=== PATIENT | female | born 1955 | race Caucasian/White ===

== ENCOUNTER → 2023-09-20 | Outpatient (CLI) | payer BC, MEDICARE ==
[2023-09-20 09:36] VITALS: BP 132/70; PULSE 72; RESP 15; TEMP 98.2
--- NOTE | 2023-09-20 14:10 | P.PAINPG ---
PQRS Measure Charge Sheet Comment: HISTORY OF PRESENT ILLNESS: A 68 yr old female as a referral from Dr Gilmore presents today w severe and chronic LBP > 4 yrs secondary to DDD, spondylosis and facet arthropathy without myelopathy for evaluation. Pt states pain level is provoked at 9 /10 in intensity, constant, localized in the moderate spine, predominantly axial, sharp in character w occasional shooting pain towards the L knee. Pain is provoked by standing/ walking for periods > 10 min. Pain is alleviated by PT x 6 wks which ended in Aug 2023, physician guided home exercises/ stretches 5 times weekly since Aug 2023. medications (Neurontin, Ibu, Tyl), heat, ice, repositioning and rest . Oswestry axial pain score at 28. PMH: OA, Hyperlipidemia, Hypothyroidism PSH: L Total Knee Arthroplasty SH: Former tobacco user, Moderate ETOH use, No illicit drug use FH: [place] All: See list Meds: See list REVIEW OF ORGAN SYSTEMS: CONSTITUTIONAL: No fevers or chills. No recent weight loss. NEUROLOGICAL: + numbness and tingling along the distal extremities. No seizure disorders or headaches. MUSCULOSKELETAL: + pain PSYCHIATRIC: Denies current depression or suicidal thoughts. Physical Examinations : Constitutional : Cooperative , not in acute distress . Neurologic : Cranial nerve II to XII intact. No focal neurological deficits. Psychiatric : alert & oriented x 3. Matching mood & appropriate affect. Judgment & insight intact. Musculoskeletal : Cervical Spine Motor strength in the deltoid and biceps: Normal right side. Normal Left side Motor strength biceps and the wrist extensors: Normal right side . Normal left side Motor strength in the triceps muscle: Normal right side. Normal left side Deep tendon reflexes: Normal at the biceps. Normal at Brachioradialis. Normal at triceps Vertebral body tenderness to deep palpation over Cervical facet loading test: positive bilaterally Spurling test: positive bilaterally Neck distraction test: positive bilaterally Sheeba sign: positive bilaterally Lumbar spine Motor strength lower extremities ,thigh and legs 5/5 Right side , 5/5 Left side Deep tendon reflexes : Normal Knee Jerk. Normal Ankle Jerk Vertebral body tenderness over Vallejo Test positive Lumbar facet Loading Test: positive Right / positive Left Range of motion of the lumbar spine F lexion 30 degrees, extension 10 degrees Straight Leg Raise test: Left/ Right positive at degrees Wenceslao test: positive right / positive left. Severe tenderness over the Sacroiliac joint on the Right / Left sides Magda test: positive bilaterally Seated flexion test: positive bilaterally. Sacral spine : Severe tenderness over the Sacroiliac joint: right side / left side Range of motion: Flexion of the lumbar spine <60 degrees Range of motion: Extension of the lumbar spine <20 degrees Gaenslen's Test positive Wenceslao test: positive right side / left side Thigh Thrust Test Sacral Thrust Test Imaging: MRI non contrast of the lumbar spine from 12/02/2019 reviewed Assessment/ Plan : Lumbar DDD Recommendation of lumbar x ray M51.36 May need additional testing if indicated. All questions answered. I have spent greater than 30 minutes on patient care today. Dr Riley was available by phone for the evaluation of this patient. The time was used to review the medical records including relevant urine studies and Prescription history (MAPs), review of the available imaging, evaluation and examination of the patient, coordination of care with the medical staff and if applicable referring physicians, as well as creation of the medical record Controlled Substance Measures - Controlled Substance Measures Is patient prescribed a controlled substance at discharge?: No
== END ==
LOC: PNWHC3 09:05
PROVIDERS: ATTEND Specialist
DX: M51.36 Other intervertebral disc degeneration, lumbar region (principal); M48.061 Spinal stenosis, lumbar region without neurogenic claudication; Z87.891 Personal history of nicotine dependence
CPT/HCPCS: 99211

== ENCOUNTER → 2023-10-04 | Outpatient (CLI) | payer BC, MEDICARE ==
[2023-10-04 10:38] VITALS: BP 137/70; PULSE 76; RESP 15; TEMP 97.2
--- NOTE | 2023-10-04 15:46 | P.PAINPG ---
PQRS Measure Charge Sheet Comment: HISTORY OF PRESENT ILLNESS: A 68 yr old female presents today w severe and chronic LBP > 4 yrs secondary to DDD, spondylosis and facet arthropathy without myelopathy for evaluation. Pt states pain level is provoked at 9 /10 in intensity, constant, localized in the moderate spine, predominantly axial, sharp in character w occasional shooting pain towards the L knee. Pain is provoked by standing/ walking for periods > 10 min. Pain is alleviated by PT x 6 wks which ended in Aug 2023, physician guided home exercises/ stretches 5 times weekly since Aug 2023. medications, heat, ice, repositioning and rest . Oswestry axial pain score at 28. Interventional procedures include Medications include Neurontin, Ibu, Tyl REVIEW OF ORGAN SYSTEMS: CONSTITUTIONAL: No fevers or chills. No recent weight loss. NEUROLOGICAL: + numbness and tingling along the distal extremities. No seizure disorders or headaches. MUSCULOSKELETAL: + pain PSYCHIATRIC: Denies current depression or suicidal thoughts. Physical Examinations : Constitutional : Cooperative , not in acute distress . Neurologic : Cranial nerve II to XII intact. No focal neurological deficits. Psychiatric : alert & oriented x 3. Matching mood & appropriate affect. Judgment & insight intact. Musculoskeletal : Cervical Spine Motor strength in the deltoid and biceps: Normal right side. Normal Left side Motor strength biceps and the wrist extensors: Normal right side . Normal left side Motor strength in the triceps muscle: Normal right side. Normal left side Deep tendon reflexes: Normal at the biceps. Normal at Brachioradialis. Normal at triceps Vertebral body tenderness to deep palpation over Cervical facet loading test: positive bilaterally Spurling test: positive bilaterally Neck distraction test: positive bilaterally Sheeba sign: positive bilaterally Lumbar spine Motor strength lower extremities ,thigh and legs 5/5 Right side , 5/5 Left side Deep tendon reflexes : Normal Knee Jerk. Normal Ankle Jerk Vertebral body tenderness over Vallejo Test positive Lumbar facet Loading Test: positive Right / positive Left Range of motion of the lumbar spine Flexion 30 degrees, extension 10 degrees Straight Leg Raise test: Left/ Right positive at degrees Wenceslao test: positive right / positive left. Severe tenderness over the Sacroiliac joint on the Right / Left sides Gaenslen test: positive bilaterally Seated flexion test: positive bilaterally. Sacral spine : Severe tenderness over the Sacroiliac joint: right side / left side Range of motion: Flexion of the lumbar spine <60 degrees Range of motion: Extension of the lumbar spine <20 degrees Gaenslen's Test positive Wenceslao test: positive right side / left side Thigh Thrust Test Sacral Thrust Test Imaging: X ray of the lumbar spine from 09/21/23 reviewed Assessment/ Plan : Lumbar DDD Recommendation of MRI non contrast of the lumbar spine M51.36. Opiate/ Narcotic agreement signed 10/04/23. Gary 5/325mg #60, Robaxin 500mg #60 w 1 RF. Use, side effects, adverse reactions, safe storage discussed. Pt acknowledged understanding. All questions answered. I have spent greater than 30 minutes on patient care today. Dr Riley was available by phone for the evaluation of this patient. The time was used to review the medical records including relevant urine studies and Prescription history (MAPs), review of the available imaging, evaluation and examination of the patient, coordination of care with the medical staff and if applicable referring physicians, as well as creation of the medical record PQRS Narrative: Hx Alcohol Use (MH) No Home Medications: Ambulatory Orders HYDROcodone/APAP 5-325MG [Gary 5-325] 1 tab PO BID PRN 30 Days #60 tab 10/04/23 HYDROcodone/APAP 5-325MG [Gary 5-325] 1 tab PO BID PRN 30 Days #60 tab 10/04/23 methocarbamoL [Robaxin] 500 mg PO BID PRN 30 Days #60 tab 10/04/23 Controlled Substance Measures - Controlled Substance Measures Is patient prescribed a controlled substance at discharge?: Yes When asked, does pt state using other controlled substances?: Yes If prescribed controlled substance>3 days was MAPS reviewed?: Yes If Rx opioid, was Start Talking consent form obtained?: Yes Was information provided regarding opioid addiction?: Yes
== END ==
LOC: PNWHC3 07:53
PROVIDERS: ATTEND Specialist
DX: M51.36 Other intervertebral disc degeneration, lumbar region (principal); M47.816 Spondylosis without myelopathy or radiculopathy, lumbar region; G89.29 Other chronic pain
CPT/HCPCS: 99211

== ENCOUNTER → 2023-11-22 | Outpatient (CLI) | payer BC, MEDICARE ==
[2023-11-22 08:13] VITALS: BP 140/85; PULSE 70; RESP 16
--- NOTE | 2023-11-22 14:49 | P.PAINPG ---
PQRS Measure Charge Sheet Comment: HISTORY OF PRESENT ILLNESS: A 68 yr old female presents today w severe and chronic LBP > 4 yrs secondary to DDD, spondylosis and facet arthropathy without myelopathy for MRI results Pt states pain level is provoked at 9 /10 in intensity, constant, localized in the moderate spine, predominantly axial, sharp in character w occasional shooting pain towards the LLE Pain is provoked by standing/ walking for periods > 10 min. Pain is alleviated by PT x 6 wks which ended in Aug 2023, physician guided home exercises/ stretches 5 times weekly since Aug 2023, medications, heat, ice, repositioning and rest . Oswestry axial pain score at 28. Interventional procedures include Medications include Mobic, Neurontin, Ibu, Tyl, Phillips rarely REVIEW OF ORGAN SYSTEMS: CONSTITUTIONAL: No fevers or chills. No recent weight loss. NEUROLOGICAL: + numbness and tingling along the distal extremities. No seizure disorders or headaches. MUSCULOSKELETAL: + pain PSYCHIATRIC: Denies current depression or suicidal thoughts. Physical Examinations : Constitutional : Cooperative , not in acute distress . Neurologic : Cranial nerve II to XII intact. No focal neurological deficits. Psychiatric : alert & oriented x 3. Matching mood & appropriate affect. Judgment & insight intact. Musculoskeletal : Cervical Spine Motor strength in the deltoid and biceps: Normal right side. Normal Left side Motor strength biceps and the wrist extensors: Normal right side . Normal left side Motor strength in the triceps muscle: Normal right side. Normal left side Deep tendon reflexes: Normal at the biceps. Normal at Brachioradialis. Normal at triceps Vertebral body tenderness to deep palpation over Cervical facet loading test: positive bilaterally Spurling test: positive bilaterally Neck distraction test: positive bilaterally Sheeba sign: positive bilaterally Lumbar spine Motor strength lower extremities ,thigh and legs 5/5 Right side , 5/5 Left side Deep tendon reflexes : Normal Knee Jerk. Normal Ankle Jerk Vertebral body tenderness over L5 Vallejo Test positive L L5-S1 Lumbar facet Loading Test: positive Right / positive Left Range of motion of the lumbar spine Flexion 30 degrees, extension 10 degrees Straight Leg Raise test: Left/ Right positive at degrees Wenceslao test: positive right / positive left. Severe tenderness over the Sacroiliac joint on the Right / Left sides Gaenslen test: positive bilaterally Seated flexion test: positive bilaterally. Sacral spine : Severe tenderness over the Sacroiliac joint: right side / left side Range of motion: Flexion of the lumbar spine <60 degrees Range of motion: Extension of the lumbar spine <20 degrees Gaenslen's Test positive Wenceslao test: positive right side / left side Thigh Thrust Test Sacral Thrust Test Imaging: MRI non contrast lumbar spine from 10/24/23 reviewed X ray of the lumbar spine from 09/21/23 reviewed Assessment/ Plan : Lumbar DDD Recommendation of JULIANE L5-S1 #1. May need a series of injections for optimal pain relief. Risks, benefits of procedure discussed and pt verbalized understanding. Protocol for discontinuation/ continuation of medications saud procedure discussed. Opiate/ Narcotic agreement signed 10/04/23. Mobic 7.5mg #30 w 1 RF. Use, side effects, adverse reactions, safe storage discussed. Pt acknowledged understanding. All questions answered. I have spent greater than 30 minutes on patient care today. Dr Riley was available by phone for the evaluation of this patient. The time was used to review the medical records including relevant urine studies and Prescription history (MAPs), review of the available imaging, evaluation and examination of the patient, coordination of care with the medical staff and if applicable referring physicians, as well as creation of the medical record PQRS Narrative: Hx Alcohol Use (MH) No Home Medications: Ambulatory Orders HYDROcodone/APAP 5-325MG [Phillips 5-325] 1 tab PO BID PRN 30 Days #60 tab 10/04/23 HYDROcodone/APAP 5-325MG [Phillips 5-325] 1 tab PO BID PRN 30 Days #60 tab 10/04/23 methocarbamoL [Robaxin] 500 mg PO BID PRN 30 Days #60 tab 10/04/23 Meloxicam [Mobic] 7.5 mg PO DAILY 30 Days #30 tab 11/22/23 Controlled Substance Measures - Controlled Substance Measures Is patient prescribed a controlled substance at discharge?: No
== END ==
LOC: PNWHC3 07:23
PROVIDERS: ATTEND Specialist
DX: M51.36 Other intervertebral disc degeneration, lumbar region (principal); Z91.09 Other allergy status, other than to drugs and biological substances
CPT/HCPCS: 99212

== ENCOUNTER 2023-12-15 06:24 | Day surgery (SDC) | payer BC, MEDICARE ==
[2023-12-13 15:09] VITALS: BMI 32.1
[2023-12-15 07:03] VITALS: TEMP 97.5
[2023-12-15 07:08] LABS: Glucose,Whole Blood 114 mg/dL (70-110)
[2023-12-15] MEDS ORDERED: LACTATED RINGERS 1,000 ML IV SCH (07:30)
[2023-12-15] MEDS ORDERED: methylPREDNISolone ACETATE 40 MG/ML 1 ML VIAL ONE (07:34)
[2023-12-15] MEDS ORDERED: IOPAMIDOL M200 10 ML VIAL ONE (07:34)
--- NOTE | 2023-12-15 07:44 | P.PCN ---
Date of Procedure: 12/15/23 Description of Procedure: Procedure: 1. [id number] steroid injection under fluoroscopic guidance # 05/31 , 2. Lumbar epidurogram PREOPERATIVE DIAGNOSIS: Lumbar degenerative disc disease, and Lumbar radiculopathy. POSTOPERATIVE DIAGNOSIS: Lumbar degenerative disc disease, and Lumbar radiculopathy. SURGEON: Carmenza Leal ANESTHESIA: Local with 1% lidocaine, and IV sedation: None EBL: None. Specimen removed: None Fluoroscopic image: saved to electronic medical records PROCEDURE INDICATION: The patient had history of Lumbar degenerative disc disease and Lumbar radiculopathy. Failed to conservative therapy. Presented for epidural steroid injection. PROCEDURE DESCRIPTION: The patient was seen and identified in the preoperative area. Risks, benefits, complications, and alternatives were discussed with the patient. The patient agreed to proceed with the procedure and signed the consent. Vital signs were stable. Patient was taken to the procedure area, and time out was completed. The patient was placed in the prone position on procedure table and a pillow was placed under the abdomen to reduce lumbar lordosis. The lumbosacral area was prepped and draped in the usual sterile fashion. Critical pause was taken. Vital signs were closely monitored during the procedure. Using anterior-posterior fluoroscopy, the L5-S1 interlaminar space was identified, and skin and deeper tissues were localized with 1% lidocaine. Using anterior-posterior fluoroscopy, lateral fluoroscopy, and rqcl-kq-mrqufuvlsi technique, a 20 gauge 3.5 Tuohy epidural needle entered the epidural space. After negative aspiration of CSF and blood with no paresthesias, 1 ml of [id number] contrast dye was injected and an excellent epidurogram was seen. Again after negative aspiration of CSF and blood with no paresthesias, 8 mL of block solution was injected into the epidural space. Block solution contained 40 mg of Depo-Medrol, and 7 mL of preservative-free normal saline. Needle was withdrawn intact, skin was cleansed, and bandages were applied. COMPLICATIONS: None. preprocedure VAS, and postprocedure VAS: 7 out of 10 DISPOSITION / PLANS: The patient was placed in a supine position and transferred to the recovery area in a stable condition for observation. Patient was discha rged from the recovery room after meeting discharge criteria. Home discharge instructions given to the patient by the staff. The patient was reexamined prior to discharge. The patient will schedule a follow up in the clinic in 4 weeks.
[2023-12-15 07:51] VITALS: RESP 14
--- NOTE | 2023-12-15 08:02 | FL ---
EXAMINATION TYPE: FL guided pain mgmt statistic DATE OF EXAM: 12/15/2023 FLUOROSCOPY Lumbar Epid Inj 7sec fluoro time .08900 DAP 2 images submitted.
[2023-12-15 08:04] VITALS: BP 129/71; PULSE 71
== END 2023-12-15 08:19 | disposition home or self-care (01) ==
LOC: ORPAIN 06:24
DX: M51.16 Intervertebral disc disorders with radiculopathy, lumbar region (principal); E03.9 Hypothyroidism, unspecified; E78.00 Pure hypercholesterolemia, unspecified; Z79.890 Hormone replacement therapy; Z79.899 Other long term (current) drug therapy; Z91.09 Other allergy status, other than to drugs and biological substances
CPT/HCPCS: 62323; Q9966; J1010

== ENCOUNTER → 2024-01-03 | Outpatient (CLI) | payer BC, MEDICARE | LOC: PNWHC3 09:17 | DX: M54.16 Radiculopathy, lumbar region | CPT/HCPCS: 99211 ==

== ENCOUNTER → 2024-02-13 | Day surgery (SDC) | payer BC, MEDICARE ==
[2024-02-08 11:13] VITALS: BMI 31.9
[~2024-02-13] MED LIST: IOPAMIDOL M200 10 ML VIAL ONE; LACTATED RINGERS 1,000 ML IV SCH; ROPIVACAINE 5MG/ML 20ML VIAL ONE; TRIAMCINOLONE ACETONIDE 40 MG/ML 1 ML VIAL ONE
[2024-02-13 08:11] VITALS: TEMP 97.8
--- NOTE | 2024-02-13 08:46 | P.PCN ---
Date of Procedure: 02/13/24 Surgeon: Kan Betancourt Pathology: none sent Condition: stable Disposition: PACU Description of Procedure: PREOPERATIVE DIAGNOSIS: 1-Lumbar radiculopathy 2- Lumber Degenerative Disc Diseases. POSTOPERATIVE DIAGNOSIS: 1-Lumbar radiculopathy. 2-Lumbar Degenerative Disc Diseases PROCEDURE 1. Lumbar epidural steroid injection under fluoroscopic guidance at the L4-5 level in the left paramedian approach. 2. Lumbar epidurogram. ANESTHESIA: Local only with 1% lidocaine EBL: Minimal PROCEDURE INDICATION: The patient with low back pain and radiculitis symptoms unresponsive to conservative treatment. Fluoroscopy was used to optimize visualization of the needle placement and to maximize safety. The patient has more pain in the back of her thighs and also in the left calf area. Her pain is more intense on the left side. Her most recent MRI showed severe lumbar stenosis at the L3 4 level and moderate stenosis at the L4 5 level. She had an epidural injection at the L5-S1 level last time and she has 70% of pain relief afterwards. Today I will change the level to L4 5 due to the most recent MRI results and also because it correlates with her current symptoms. PROCEDURE DESCRIPTION / TECHNIQUE: The patient was seen and identified in the preoperative area. Risks, benefits, complications including but not limited to infections ,bleeding ,allergic reaction to the medications ,nerve damage and not complete pain relief , and alternatives were discussed with the patient. The patient agreed to proceed with the procedure and signed the consent. IV was started, and vital signs were stable. Patient was taken to the OR and time out was completed. The patient was placed in the prone position on procedure table and a pillow was placed under the abdomen to reduce lumbar lordosis. The lumbosacral area was prepped and draped in the usual sterile fashion with ChloraPrep.Patient was closely monitored during the procedure. Conscious sedation was used during the procedure to decrease patients anxiety. Vital signs were monitered during the entire procedure. Using anterior-posterior fluoroscopy, the L4-5 interlaminar space was identified and the skin over this site was marked and then infiltrated with 1% lidocaine subcutaneously. Subsequently, a 20-gauge Tuohy epidural needle was inserted and advanced toward the epidural space using the Loss of resistance to air technique and guided by AP and lateral fluoroscopy. The correct needle position in the epidural space was verified with the injection of 1 mL of the water soluble contrast dye Omnipaque 180 contrast and observing an excellent epidurogram with the epidural spread of the dye, after negative aspiration for blood and CSF and in the absence of paresthesias. Again after negative aspiration, a 7 ml mixture containing 40 mg of Kenalog and 5 ml of preservative free Normal Saline, and 2 ml of preservative free Ropivacaine 0.5% solution was injected and a washout of epidurogram was seen. Needle was withdrawn intact, skin was cleansed, and bandages were applied. patient tolerated procedure well and was transferred to PACU in stable condition.A copy of the needle placement picture was saved to the fluoroscopy machine. COMPLICATIONS: None DISPOSITION / PLANS: The patient was placed in a supine position and transferred to the recovery area in a stable condition for observation. There was no evidence of lower extremity motor or sensory deficit after the procedure. Patient was discharged from the recovery room after meeting discharge criteria. Home discharge instructions were given to the patient by the staff. The patient was reexamined prior to discharge. The patient will schedule a follow up in the clinic in 2-4 weeks.
[2024-02-13 08:55] VITALS: RESP 14
[2024-02-13 09:08] VITALS: BP 129/76; PULSE 61
--- NOTE | 2024-02-29 10:36 | FL ---
EXAMINATION TYPE: FL guided pain mgmt statistic DATE OF EXAM: 02/13/2024 8:53 AM COMPARISON: Pre Operative Images if available both CT/MRI or plain film CLINICAL INDICATION: Female, 69 years old with history of M54.16; TECHNIQUE: FL guided pain mgmt statistic, multiple fluoroscopic images provided for procedure. Total fluoroscopy time: 17.3 seconds Total submitted images to PACS: 2 DAP: 0.20450 mGym2 Gycm2 uGym2 cGycm2 or equivalent. FINDINGS: Fluoroscopic images during injection for pain management demonstrate multilevel degeneration changes throughout the spine. No evidence for fracture. No acute process identified. IMPRESSION: 1. No evidence for intraoperative complication. 2. Please see the operative/procedural note for further details. [facility], , 02/29/2024 10:33 AM
== END ==
LOC: ORPAIN 06:53
PROVIDERS: ATTEND Anesthesiology
DX: M51.16 Intervertebral disc disorders with radiculopathy, lumbar region (principal); M48.061 Spinal stenosis, lumbar region without neurogenic claudication; F41.9 Anxiety disorder, unspecified
CPT/HCPCS: 62323

== ENCOUNTER → 2024-03-04 | Outpatient (CLI) | payer BC, MEDICARE ==
[2024-03-04 09:22] VITALS: BP 146/88; PULSE 97; RESP 16; TEMP 97.1
--- NOTE | 2024-03-04 15:04 | P.PAINPG ---
PQRS Measure Charge Sheet Comment: HISTORY OF PRESENT ILLNESS: A 69 yr old female presents today w severe and chronic LBP > 4 yrs secondary to radiculopathy, spondylosis and facet arthropathy without myelopathy, BL Sacroiliitis for evaluation s/p L paramedian JULIANE L4-L5 #1. Pt states she experienced >50 % pain relief x 3 wks s/p procedure. Pt states pain level is provoked at 8 /10 in intensity, constant, localized in the moderate spine, predominantly axial, sharp in character w occasional shooting pain towards the LLE Pain is provoked by standing/ walking for periods > 10 min. Pain is alleviated by PT x 6 wks which ended in Aug 2023, physician guided home exercises/ stretches 5 times weekly since Aug 2023, medications, use of a TENS u nit at home, heat, ice, repositioning and rest . Interventional procedures include JULIANE L5-S1 x1, L4-L5 x1 Medications include Mobic, Neurontin, Ibu, Tyl, [place] rarely REVIEW OF ORGAN SYSTEMS: CONSTITUTIONAL: No fevers or chills. No recent weight loss. NEUROLOGICAL: + numbness and tingling along the distal extremities. No seizure disorders or headaches. MUSCULOSKELETAL: + pain PSYCHIATRIC: Denies current depression or suicidal thoughts. Physical Examinations : Constitutional : Cooperative , not in acute distress . Neurologic : Cranial nerve II to XII intact. No focal neurological deficits. Psychiatric : alert & oriented x 3. Matching mood & appropriate affect. Judgment & insight intact. Musculoskeletal : Cervical Spine Motor strength in the deltoid and biceps: Normal right side. Normal Left side Motor strength biceps and the wrist extensors: Normal right side . Normal left side Motor strength in the triceps muscle: Normal right side. Normal left side Deep tendon reflexes: Normal at the biceps. Normal at Brachioradialis. Normal at triceps Vertebral body tenderness to deep palpation over Cervical facet loading test: positive bilaterally Spurling test: positive bilaterally Neck distraction test: positive bilaterally Sheeba sign: positive bilaterally Lumbar spine Motor strength lower extremities ,thigh and legs 5/5 Right side , 5/5 Left side Deep tendon reflexes : Normal Knee Jerk. Normal Ankle Jerk Vertebral body tenderness over L4 [place] Test positive L L4-5 Lumbar facet Loading Test: positive Right / positive Left Range of motion of the lumbar spine Flexion 30 degrees, extension 10 degrees Straight Leg Raise test: Left/ Right positive at degrees Wenceslao test: positive right / positive left. Severe tenderness over the Sacroiliac joint on the Right / Left sides Gaenslen test: positive bilaterally Seated flexion test: positive bilaterally. Sacral spine : Severe tenderness over the Sacroiliac joint: right side / left side Range of motion: Flexion of the lumbar spine <60 degrees Range of motion: Extension of the lumbar spine <20 degrees Gaenslen's Test positive R> L Wenceslao test: positive right side > left side Thigh Thrust Test BL positive Sacral Thrust Test Imaging: MRI non contrast lumbar spine from 10/24/23 reviewed X ray of the lumbar spine from 09/21/23 reviewed Assessment/ Plan : Lumbar radiculopathy, BL Sacroiliitis Recommendation of BL SI injection #1. Risks, benefits of procedure discussed and pt verbalized understanding. Protocol for discontinuation/ continuation of medications saud procedure discussed. Opiate/ Narcotic agreement signed 10/04/23. Add Diclofenac gel w 1 RF. Use, side effects, adverse reactions, safe storage discussed. Pt acknowledged understanding. All questions answered. I have spent greater than 30 minutes on patient care today. Dr Riley was available by phone for the evaluation of this patient. The time was used to review the medical records including relevant urine studies and Prescription history (MAPs), review of the available imaging, evaluation and examination of the patient, coordination of care with the medical staff and if applicable referring physicians, as well as creation of the medical record - Pain Location Bilateral Lower Back Non-Pharmacological Interventions: Chiropractic Treatment, Heat, Ice, Inactivity, Physical Therapy, TENS Unit Pharmacological Interventions: Epidural, PRN Medication, Scheduled Medication, Topical Medication PQRS Narrative: Narcotic Agreement Date Signed 10/04/23 Hx Alcohol Use (MH) No Home Medications: Ambulatory Orders HYDROcodone/APAP 5-325MG [[place] 5-325] 1 tab PO BID PRN 30 Days #60 tab 10/04/23 Acetaminophen [Tylenol Extra Strength] 500 mg PO DAILY PRN 12/14/23 Calcium D3(Unknown Dose) 40 mcg PO QAM 12/14/23 Cholecalciferol (Vitamin D3) [Vitamin D3 (50 Mcg = 2000 Iu)] 50 mcg PO QAM 12/14/23 Collagenpeptide(Uknown Dose) 28 gm PO QAM 12/14/23 Glucosamine/Chondr Juan A Sod [Osteo Bi-Flex Caplet] 1 each PO BID 12/14/23 Ibuprofen (Uknown Dose) 1 dose PO Q6H PRN 12/14/23 Levothyroxine Sodium [Synthroid] 125 mcg PO QAM 12/14/23 Multivitamin [Multivitamins Adult Gummies] 1 each PO QAM 12/14/23 Oxybutynin Chloride [oxyBUTYnin chloride ER] 10 mg PO QAM 12/14/23 Simvastatin [Zocor] 10 mg PO HS 12/14/23 Naproxen Sodium [Aleve] 220 mg PO DAILY PRN 02/08/24 Meloxicam [Mobic] 7.5 mg PO QAM 30 Days #30 tab 02/12/24 Controlled Substance Measures - Controlled Substance Measures Is patient prescribed a controlled substance at discharge?: No
== END ==
LOC: PNWHC3 08:58
PROVIDERS: ATTEND Specialist
DX: M54.16 Radiculopathy, lumbar region (principal); M46.1 Sacroiliitis, not elsewhere classified; Z88.8 Allergy status to other drugs, medicaments and biological substances
CPT/HCPCS: 99211

== ENCOUNTER 2024-03-28 08:53 | Day surgery (SDC) | payer BC, MEDICARE ==
[2024-03-28] MEDS ORDERED: LACTATED RINGERS 1,000 ML IV SCH (09:50)
[2024-03-28 09:55] VITALS: RESP 16; TEMP 97
[2024-03-28] MEDS ORDERED: methylPREDNISolone ACETATE 40 MG/ML 1 ML VIAL ONE (10:56)
[2024-03-28] MEDS ORDERED: ROPIVACAINE 5MG/ML 20ML VIAL ONE (10:56)
[2024-03-28] MEDS ORDERED: IOPAMIDOL M200 10 ML VIAL ONE (10:56)
--- NOTE | 2024-03-28 11:03 | P.PCN ---
Date of Procedure: 03/28/24 Procedure(s) Performed: Procedure= bilateral sacroiliac joints steroid injection under fluoroscopy guidance (fluoroscopy image stored on file in the radiology Department ) Preoperative diagnosis= 1-bilateral sacroiliitis 2-lumbar radiculopathy Postoperative diagnosis=Same as preop Diagnosis . Complication = none Condition= stable Anesthesia= local anesthesia with ropivacaine 0.5% 4 ml only Indication for the procedure= patient complaining of low back pain , examination was positive for severe tenderness over the sacroiliac joints bilaterally and patient diagnosed with sacroiliitis, for this reason she was good candidate for sacroiliac joint steroid injection. Description of the procedure= procedure risk and benefits discussed with the patient, including but not limited, risk of infection and bleeding, and ALLERGIC reaction to the medication and not complete pain relief and patient agreed with the preceding patient taken to the operating room, placed in prone position or standard monitors applied to the patient then after induction of anesthesia back prepped with chlorhexidine 3 times , Then under strict sterile technique, first I did the right sacroiliac joint the which was identified under fluoroscopy guidance been local infiltration of the skin and subcu interstitial with lidocaine 1% then 22-gauge Quincke Needle advanced slowly under fluoroscopy and placed in the right sacroiliac joint needle placement confirmed with AP and oblique and lateral view, then after that Isovue 200 one mL injected which confirmed the correct needle placement with the appropriate arthrogram of the sacroiliac joint, and after appropriate needle placement confirmed and after negative aspiration, or heme , then Ropivacaine 0.5% 2 mL, and 20 mg of Depo-Medrol mixed together and injected in the right sacroiliac joint after negative aspiration patient tolerated the procedure well without any complication. Then the left sacroiliac joint steroid injection done under strict sterile technique local infiltration of the skin and subcu interstitial at the location of the left sacroiliac joint then a 22-gauge Quincke Needle advanced slowly under fluoroscopy time placed in the left sacroiliac joint, needle placement confirmed with AP and oblique and lateral view then after appropriate needle placement confirmed, with the AP and oblique and lateral then after negative aspiration Isovue 200 1 mL injected showed arthropathy of the left sacroiliac joint, and after negative aspiration 0.5% Ropivacaine 2 mL and 20 mg of Depo- Medrol injected in the left sacroiliac joint after negative aspiration patient tolerated the procedure well that any complications and she will follow up in clinic 3 weeks
[2024-03-28 11:41] VITALS: BP 138/84; PULSE 68
--- NOTE | 2024-03-28 11:43 | FL ---
EXAMINATION TYPE: FL guided pain mgmt statistic DATE OF EXAM: 03/28/2024 FLUOROSCOPY lucrecia Si Inj 15 sec fluoro time .[id number] Solis 2 images submitted. [facility], , 03/28/2024 11:41 AM
== END 2024-03-28 11:41 | disposition home or self-care (01) ==
LOC: ORPAIN 08:53
PROVIDERS: ATTEND Specialist
DX: M46.1 Sacroiliitis, not elsewhere classified (principal); M54.16 Radiculopathy, lumbar region
CPT/HCPCS: 27096; Q9966; J2795; J1010

== ENCOUNTER → 2024-04-29 | Outpatient (CLI) | payer BC, MEDICARE ==
[2024-04-29 09:42] VITALS: BP 150/89; PULSE 71; RESP 16; TEMP 97.3
--- NOTE | 2024-04-29 16:20 | P.PAINPG ---
PQRS Measure Charge Sheet Comment: HISTORY OF PRESENT ILLNESS: A 69 yr old female presents today w severe and chronic LBP > 4 yrs secondary to radiculopathy, spondylosis and facet arthropathy without myelopathy, BL Sacroiliitis for evaluation s/p BL SI injection #1. Pt states she experienced 0 % pain relief s/p procedure. Pt states pain level is provoked at 8 /10 in intensity, constant, localized in the lumbar spine, predominantly axial, sore in character w occasional shooting pain down the back of the LLE. Pain is provoked by standing from a sitting position, walking for periods > 10 min. Pain is alleviated by PT x 6 wks which ended in Aug 2023, physician guided home exercises/ stretches 5 times weekly since Aug 2023, medications, use of a TENS unit at home, heat, ice, repositioning and rest . Interventional procedures include JULIANE L5-S1 x1, L4-L5 x1, BL SI x1 (Feb 2024) Medications include Mobic, Neurontin, Ibu, Tyl, [place] rarely REVIEW OF ORGAN SYSTEMS: CONSTITUTIONAL: No fevers or chills. No recent weight loss. NEUROLOGICAL: + numbness and tingling along the distal extremities. No seizure disorders or headaches. MUSCULOSKELETAL: + pain PSYCHIATRIC: Denies current depression or suicidal thoughts. Physical Examinations : Constitutional : Cooperative , not in acute distress . Neurologic : Cranial nerve II to XII intact. No focal neurological deficits. Psychiatric : alert & oriented x 3. Matching mood & appropriate affect. Judgment & insight intact. Musculoskeletal : Cervical Spine Motor strength in the deltoid and biceps: Normal right side. Normal Left side Motor strength biceps and the wrist extensors: Normal right side . Normal left side Motor strength in the triceps muscle: Normal right side. Normal left side Deep tendon reflexes: Normal at the biceps. Normal at Brachioradialis. Normal at triceps Vertebral body tenderness to deep palpation over Cervical facet loading test: positive bilaterally Spurling test: positive bilaterally Neck distraction test: positive bilaterally Sheeba sign: positive bilaterally Lumbar spine Motor strength lower extremities ,thigh and legs 5/5 Right side , 5/5 Left side Deep tendon reflexes : Normal Knee Jerk. Normal Ankle Jerk Vertebral body tenderness over L4 [place] Test positive L L4-5 Lumbar facet Loading Test: positive Right / positive Left L4-L5, L5-S1 Range of motion of the lumbar spine Flexion 30 degrees, extension 10 degrees Straight Leg Raise test: Left/ Right positive at degrees Wenceslao test: positive right / positive left. Severe tenderness over the Sacroiliac joint on the Right / Left sides Gaenslen test: positive bilaterally Seated flexion test: positive bilaterally. Sacral spine : Severe tenderness over the Sacroiliac joint: right side / left side Range of motion: Flexion of the lumbar spine <60 degrees Range of motion: Extension of the lumbar spine <20 degrees Gaenslen's Test positive R> L Wenceslao test: positive right side > left side Thigh Thrust Test BL positive Sacral Thrust Test Imaging: MRI non contrast lumbar spine from 10/24/23 reviewed X ray of the lumbar spine from 09/21/23 reviewed Assessment/ Plan : Lumbar radiculopathy, BL Sacroiliitis Recommendation of BL MBB L4-L5/ L5-S1 #1. Risks, benefits of procedure discussed and pt verbalized understanding. Minimal anesthesia including Fentanyl and Versed if clinically indicated. Protocol for discontinuation/ continuation of medications saud procedure discussed. Opiate/ Narcotic agreement signed 10/04/23. [place] 5/325mg #60, Robaxin 500mg #60, Mobic 15mg #30 & Diclofenac gel w 1 RF. Use, side effects, adverse reactions, safe storage discussed. Pt acknowledged understanding. All questions answered. I have spent greater than 30 minutes on patient care today. Dr Riley was available by phone for the evaluation of this patient. The time was used to review the medical records including relevant urine studies and Prescription history (MAPs), review of the available imaging, evaluation and examination of the patient, coordination of care with the medical staff and if applicable referring physicians, as well as creation of the medical record - Pain Location Bilateral Lower Back Non-Pharmacological Interventions: Heat, Ice, Inactivity, Position/Reposition, Sitting Pharmacological Interventions: Epidural, PRN Medication, Scheduled Medication, Topical Medication PQRS Narrative: Narcotic Agreement Date Signed 10/04/23 Hx Alcohol Use (MH) No Home Medications: Ambulatory Orders Acetaminophen [Tylenol Extra Strength] 500 mg PO DAILY PRN 12/14/23 Calcium D3(Unknown Dose) 40 mcg PO QAM 12/14/23 Cholecalciferol (Vitamin D3) [Vitamin D3 (50 Mcg = 2000 Iu)] 50 mcg PO QAM 12/14/23 Collagenpeptide(Uknown Dose) 28 gm PO QAM 12/14/23 Glucosamine/Chondr Juan A Sod [Osteo Bi-Flex Caplet] 1 each PO BID 12/14/23 Ibuprofen (Uknown Dose) 1 dose PO Q6H PRN 12/14/23 Levothyroxine Sodium [Synthroid] 125 mcg PO QAM 12/14/23 Multivitamin [Multivitamins Adult Gummies] 1 each PO QAM 12/14/23 Oxybutynin Chloride [oxyBUTYnin chloride ER] 10 mg PO QAM 12/14/23 Simvastatin [Zocor] 10 mg PO HS 12/14/23 Naproxen Sodium [Aleve] 220 mg PO DAILY PRN 02/08/24 Diclofenac Sodium Gel [Voltaren 1% Gel] 50 gm TOPICAL BID 30 Days #1 each 04/29/24 HYDROcodone/APAP 5-325MG [[place] 5-325] 1 tab PO BID PRN 30 Days #60 tab 04/29/24 HYDROcodone/APAP 5-325MG [[place] 5-325] 1 tab PO BID PRN 30 Days #60 tab 04/29/24 Meloxicam [Mobic] 7.5 mg PO QAM 30 Days #30 tab 04/29/24 methocarbamoL [Robaxin] 500 mg PO BID PRN 30 Days #60 tab 04/29/24 Controlled Substance Measures - Controlled Substance Measures Is patient prescribed a controlled substance at discharge?: Yes When asked, does pt state using other controlled substances?: No If prescribed controlled substance>3 days was MAPS reviewed?: Yes
== END ==
LOC: PNWHC3 09:22
PROVIDERS: ATTEND Specialist
DX: M47.26 Other spondylosis with radiculopathy, lumbar region (principal); M46.1 Sacroiliitis, not elsewhere classified; Z79.891 Long term (current) use of opiate analgesic; Z91.048 Other nonmedicinal substance allergy status
CPT/HCPCS: 99211

== ENCOUNTER → 2024-05-24 | Day surgery (SDC) | payer BC, MEDICARE ==
[2024-05-23 09:59] VITALS: BMI 31.1
[~2024-05-24] MED LIST changes: +FLUMAZENIL 0.1 MG/ML 5 ML VIAL IVP ONE; -IOPAMIDOL M200 10 ML VIAL ONE; -LACTATED RINGERS 1,000 ML IV SCH; +MIDAZOLAM 2 MG/2 ML VIAL ONE; -TRIAMCINOLONE ACETONIDE 40 MG/ML 1 ML VIAL ONE; +fentaNYL (PF) 50 MCG/ML 2 ML AMP ONE
[2024-05-24] MEDS: IV FLUID CONTINUATION 1,000 ML IV ONE (09:27)
[2024-05-24 09:37] VITALS: RESP 16; TEMP 97.7
[2024-05-24] MEDS: LACTATED RINGERS 1,000 ML IV SCH (09:41)
--- NOTE | 2024-05-24 10:40 | P.PCN ---
Date of Procedure: 05/24/24 Procedure(s) Performed: PREOPERATIVE DIAGNOSIS : 1- Lumbar spondylosis with Facet Arthropathy without myelopathy . 2- Lumber degenerative disc disease POSTOPERATIVE DIAGNOSIS: 1- Lumbar spondylosis with Facet Arthropathy without myelopathy . 2- Lumber degenerative disc disease PROCEDURE: Diagnostic bilateral L3 , L4 , and L5 medial branch block under fluoroscopy guidance(fluoroscopy images available in the radiology Department ) ( To target the facet joint between Bilateral L4-5 , and L5- S1 )#1st ANESTHESIA: moderate sedation with intravenous Versed 4 mg and Fentanyl 100 mcg.(Sedation started at 1019 ended at 1036) EBL: Minimal COMPLICATION: None PROCEDURE INDICATION: Chronic low back pain secondary to Facet arthropathy unresponsive to conservative treatment. PROCEDURE DESCRIPTION: the patient was seen and identified in the preop holding area , risks and benefits and possible complications of the procedure and alternative were discussed with the patient, and the patient agreed to proceed with the procedure and signed the consent and vital signs monitored during the procedure and fluoroscopy was used to maximize the benefit and accuracy of the needle placement, and sedation was given to decrease patient anxiety, patient was taken to the procedure room and placed in prone position vital signs monitored in the back prepped with chlorhexidine X3 then under strict sterile technique using a right oblique fluoroscopy ,the junction of the transverse process and the superior articulating process of the right L3 , L4 , and L5 vertebra which corresponding to the fluoroscopy image of the eye of the Dwayne dog on the block side for the medial branches and subsequently , after local infiltration of skin and subcu tissuies with Ropivacaine 0.5 % , one mL at each level ,then 22-gauge Quincke-type needles , 3 needle was used , each one of them placed at the junction of the base of the transverse process and the superior articular process at the appropriate level, and the needle was advanced until the periosteum contacted, needle placement confirmed with AP oblique and lateral view and after appropriate needle placement confirmed, and after negative aspiration for heme and CSF and there was no paresthesia 1-1/2 mL of Ropivacaine 0.5% , then half mL injected at each level after negative aspiration the needle subsequently removed and the same procedure repeated for the left side at left side at L3 , L4 and L5 levels. At the end of the procedure and the needles removed and a bandage applied after the skin was cleaned the cleaning solution patient taken to recovery room in stable condition and monitors in the recovery room for 20-30 minutes and discharged home in stable condition after discharge criteria met and patient will follow up with the pain clinic in 2-4 weeks note= patient received 2 mg of Versed , and 50 mcg of fentanyl at the beginning of the procedure, and later on we found out that the patient's IV was infiltrated,for this reason we changed the IV, and patient did not feel any effect of the medication ,for this reason we did give another 2 mg of Versed and 50 mcg of fentanyl, and at the end of the procedure we reversed the effect of the Versed with Romazicon 0.3 mg IV
[2024-05-24] MEDS: IV FLUID CONTINUATION 750 ML IV ONE (10:52)
[2024-05-24 11:25] VITALS: BP 144/78; PULSE 54
--- NOTE | 2024-05-24 12:32 | FL ---
EXAMINATION TYPE: FL guided pain mgmt statistic DATE OF EXAM: 05/24/2024 FLUOROSCOPY 23sec fluoro time .[id number] Solis Bilateral lumbar facet blocks 4 images are submitted. [facility], , 05/24/2024 12:29 PM
== END ==
LOC: ORPAIN 08:15
PROVIDERS: ATTEND Specialist
DX: M47.816 Spondylosis without myelopathy or radiculopathy, lumbar region (principal); M51.369 Other intervertebral disc degeneration, lumbar region without mention of lumbar back pain or lower extremity pain; G89.29 Other chronic pain; Z79.1 Long term (current) use of non-steroidal anti-inflammatories (NSAID); Z79.899 Other long term (current) drug therapy; Z91.048 Other nonmedicinal substance allergy status
CPT/HCPCS: 64493; 64494 ×2; 99152; J2250; J3010; J2795

== ENCOUNTER → 2024-06-24 | Outpatient (CLI) | payer BC, MEDICARE ==
[2024-06-24 12:05] VITALS: BP 137/84; PULSE 76; RESP 16; TEMP 98.9
--- NOTE | 2024-06-24 15:20 | P.PAINPG ---
PQRS Measure Charge Sheet Comment: HISTORY OF PRESENT ILLNESS: A 69 yr old female presents today w severe and chronic LBP > 4 yrs secondary to radiculopathy, spondylosis and facet arthropathy without myelopathy, BL Sacroiliitis for evaluation s/p BL MBB L4-L5/ L5-S1 #1. Pt states she experienced 85 % pain relief 1 wk s/p procedure. Pt states pain level is provoked at 6 /10 in intensity, constant, localized in the lumbar spine, predominantly axial, sore in character w occasional shooting pain down the back of the LLE. Pain is provoked by standing from a sitting position, walking for periods > 10 min. Pain is alleviated by PT x 6 wks which ended in Aug 2023, physician guided home exercises/ stretches 5 times weekly since Aug 2023, medic ations, use of a TENS unit at home, heat, ice, repositioning and rest . Interventional procedures include JULIANE L5-S1 x1, L4-L5 x1, BL SI x1 (Feb 2024), BL MBB L3-L5 x1 Medications include Mobic, Neurontin, Ibu, Tyl, [place] rarely REVIEW OF ORGAN SYSTEMS: CONSTITUTIONAL: No fevers or chills. No recent weight loss. NEUROLOGICAL: + numbness and tingling along the distal extremities. No seizure disorders or headaches. MUSCULOSKELETAL: + pain PSYCHIATRIC: Denies current depression or suicidal thoughts. Physical Examinations : Constitutional : Cooperative , not in acute distress . Neurologic : Cranial nerve II to XII intact. No focal neurological deficits. Psychiatric : alert & oriented x 3. Matching mood & appropriate affect. Judgment & insight intact. Musculoskeletal : Cervical Spine Motor strength in the deltoid and biceps: Normal right side. Normal Left side Motor strength biceps and the wrist extensors: Normal right side . Normal left side Motor strength in the triceps muscle: Normal right side. Normal left side Deep tendon reflexes: Normal at the biceps. Normal at Brachioradialis. Normal at triceps Vertebral body tenderness to deep palpation over Cervical facet loading test: positive bilaterally Spurling test: positive bilaterally Neck distraction test: positive bilaterally Sheeba sign: positive bilaterally Lumbar spine Motor strength lower extremities ,thigh and legs 5/5 Right side , 5/5 Left side Deep tendon reflexes : Normal Knee Jerk. Normal Ankle Jerk Vertebral body tenderness over L4 [place] Test positive L L4-5 Lumbar facet Loading Test: positive Right / positive Left L4-L5, L5-S1 Range of motion of the lumbar spine Flexion 30 degrees, extension 10 degrees Straight Leg Raise test: Left/ Right positive at degrees Wenceslao test: positive right / positive left. Severe tenderness over the Sacroiliac joint on the Right / Left sides Gaenslen test: positive bilaterally Seated flexion test: positive bilat erally. Sacral spine : Severe tenderness over the Sacroiliac joint: right side / left side Range of motion: Flexion of the lumbar spine <60 degrees Range of motion: Extension of the lumbar spine <20 degrees Gaenslen's Test positive R> L Wenceslao test: positive right side > left side Thigh Thrust Test BL positive Sacral Thrust Test Imaging: MRI non contrast lumbar spine from 10/24/23 reviewed X ray of the lumbar spine from 09/21/23 reviewed Assessment/ Plan : Lumbar radiculopathy, BL Sacroiliitis Recommendation of BL MBB L4-L5/ L5-S1 #2. Risks, benefits of procedure discussed and pt verbalized understanding. Minimal anesthesia including Fentanyl and Versed if clinically indicated. Protocol for discontinuation/ continuation of medications saud procedure discussed. Opiate/ Narcotic agreement signed 10/04/23. Ample supply of [place] 5/325mg #60, Robaxin 500mg #60, Mobic 15mg #30 & Diclofenac gel w 1 RF. Use, side effects, adverse reactions, safe storage discussed. Pt acknowledged understanding. All questions answered. I have spent greater than 30 minutes on patient care today. Dr Riley was available by phone for the evaluation of this patient. The time was used to review the medical records including relevant urine studies and Prescription history (MAPs), review of the available imaging, evaluation and examination of the patient, coordination of care with the medical staff and if applicable referring physicians, as well as creation of the medical record PQRS Narrative: Narcotic Agreement Date Signed 10/04/23 Hx Alcohol Use (MH) No Home Medications: Ambulatory Orders Acetaminophen [Tylenol Extra Strength] 500 - 650 mg PO DAILY PRN 12/14/23 Calcium D3(Unknown Dose) 40 mcg PO QAM 12/14/23 Cholecalciferol (Vitamin D3) [Vitamin D3 (50 Mcg = 2000 Iu)] 50 mcg PO QAM 12/14/23 Ibuprofen [Advil] 200 mg PO DAILY PRN 12/14/23 Multivitamin [Multivitamins Adult Gummies] 1 each PO QAM 12/14/23 Oxybutynin Chloride [oxyBUTYnin chloride ER] 10 mg PO QAM 12/14/23 Simvastatin [Zocor] 10 mg PO HS 12/14/23 Naproxen Sodium [Aleve] 220 mg PO DAILY PRN 02/08/24 Diclofenac Sodium Gel [Voltaren 1% Gel] 50 gm TOPICAL BID 30 Days #1 each 04/29/24 HYDROcodone/APAP 5-325MG [[place] 5-325] 1 tab PO BID PRN 30 Days #60 tab 04/29/24 Meloxicam [Mobic] 7.5 mg PO QAM 30 Days #30 tab 04/29/24 methocarbamoL [Robaxin] 500 mg PO BID PRN 30 Days #60 tab 04/29/24 Glucosamine/Chondr Juan A Sod [Osteo Bi-Flex Caplet] 1 each PO DAILY 05/23/24 Magnesium 400 mg PO DAILY 05/23/24 Controlled Substance Measures - Controlled Substance Measures Is patient prescribed a controlled substance at discharge?: No
== END ==
LOC: PNWHC3 09:24
PROVIDERS: ATTEND Specialist
DX: M54.16 Radiculopathy, lumbar region (principal); M46.1 Sacroiliitis, not elsewhere classified; Z91.048 Other nonmedicinal substance allergy status; Z91.09 Other allergy status, other than to drugs and biological substances
CPT/HCPCS: 99211

== ENCOUNTER → 2024-07-22 | Outpatient (CLI) | payer BC, MEDICARE ==
[2024-07-22 10:05] VITALS: BP 151/86; PULSE 95; RESP 16; TEMP 97.1
--- NOTE | 2024-07-22 15:32 | P.PAINPG ---
Objective - Vital Signs Vital signs: Vital Signs Temp 97.1 F L 07/22/24 10:01 Pulse 95 07/22/24 10:01 Resp 16 07/22/24 10:01 BP 151/86 07/22/24 10:01 Pulse Ox 95 07/22/24 10:01 FiO2 Intake & Output 07/21/24 07/22/24 07/22/24 18:59 06:59 18:59 Weight 90.265 kg PQRS Measure Charge Sheet Mode of Arrival: Ambulatory Comment: HISTORY OF PRESENT ILLNESS: A 69 yr old female presents today w severe and chronic LBP > 4 yrs secondary to radiculopathy, spondylosis and facet arthropathy without myelopathy, BL Sacroiliitis for evaluation s/p BL MBB L4-L5/ L5-S1 #2. Pt states she experienced 80 % pain relief 2 hr s/p procedure. Pt states pain level is provoked at 7 /10 in intensity, constant, localized in the lumbar spine, predominantly axial, sore in character w occasional shooting pain down the back of the LLE. Pain is provoked by standing from a sitting position, walking for periods > 10 min. Pain is alleviated by PT x 6 wks which ended in Aug 2023, physician guided home exercises/ stretches 5 times weekly since Aug 2023, medications, use of a cane, TENS unit at home, heat, ice, repositioning and rest . Interventional procedures include JULIANE L5-S1 x1, L4-L5 x1, BL SI x1 (Feb 2024), BL MBB L3-L5 x2 Medications include Mobic, Neurontin, Ibu, Tyl, [place] rarely REVIEW OF ORGAN SYSTEMS: CONSTITUTIONAL: No fevers or chills. No recent weight loss. NEUROLOGICAL: + numbness and tingling along the distal extremities. No seizure disorders or headaches. MUSCULOSKELETAL: + pain PSYCHIATRIC: Denies current depression or suicidal thoughts. Physical Examinations : Constitutional : Cooperative , not in acute distress . Neurologic : Cranial nerve II to XII intact. No focal neurological deficits. Psychiatric : alert & oriented x 3. Matching mood & appropriate affect. Judgment & insight intact. Musculoskeletal : Cervical Spine Motor strength in the deltoid and biceps: Normal right side. Normal Left side Motor strength biceps and the wrist extensors: Normal right side . Normal left side Motor strength in the triceps muscle: Normal right side. Normal left side Deep tendon reflexes: Normal at the biceps. Normal at Brachioradialis. Normal at triceps Vertebral body tenderness to deep palpation over Cervical facet loading test: positive bilaterally Spurling test: positive bilaterally Neck distraction test: positive bilaterally Sheeba sign: positive bilaterally Lumbar spine Motor strength lower extremities ,thigh and legs 5/5 Right side , 5/5 Left side Deep tendon reflexes : Normal Knee Jerk. Normal Ankle Jerk Vertebral body tenderness over L4 [place] Test positive L L4-5 Lumbar facet Loading Test: positive Right / positive Left L4-L5, L5-S1 Range of motion of the lumbar spine Flexion 30 degrees, extension 10 degrees Straight Leg Raise test: Left/ Right positive at degrees Wenceslao test: positive right / positive left. Severe tenderness over the Sacroiliac joint on the Right / Left sides Gaenslen test: positive bilaterally Seated flexion test: positive bilaterally. Sacral spine : Severe tenderness over the Sacroiliac joint: right side / left side Range of motion: Flexion of the lumbar spine <60 degrees Range of motion: Extension of the lumbar spine <20 degrees Gaenslen's Test positive R> L Wenceslao test: positive right side > left side Thigh Thrust Test BL positive Sacral Thrust Test Imaging: MRI non contrast lumbar spine from 10/24/23 reviewed X ray of the lumbar spine from 09/21/23 reviewed Assessment/ Plan : Lumbar radiculopathy, BL Sacroiliitis Recommendation of BL RFA L4-L5/ L5-S1. PT x 6 wks to integrate w therapeutic massage M54.16 . Risks, benefits of procedure discussed and pt verbalized understanding. Minimal anesthesia including Fentanyl and Versed if clinically indicated. Protocol for discontinuation/ continuation of medications saud procedure discussed. Opiate/ Narcotic agreement signed 10/04/23. E-script of Robaxin 500mg #60. Ample supply of [place] 5/325mg #60, Mobic 15mg #30 & Diclofenac gel w 1 RF. Use, side effects, adverse reactions, safe storage discussed. Pt acknowledged understanding. All questions answered. I have spent greater than 30 minutes on patient care today. Dr Riley was available by phone for the evaluation of this patient. The time was used to review the medical records including relevant urine studies and Prescription history (MAPs), review of the available imaging, evaluation and examination of the patient, coordination of care with the medical staff and if applicable referring physicians, as well as creation of the medical record - Pain Location Bilateral Lower Back Non-Pharmacological Interventions: Heat, Inactivity, Physical Therapy, Position/Reposition, Sitting Pharmacological Interventions: Block, Epidural, PRN Medication, Topical Medication PQRS Narrative: Narcotic Agreement Date Signed 10/04/23 Blood Pressure 151/86 Pain Intensity [Bilateral 7 Lower Back] Scale Used Numeric (1 - 10) Hx Alcohol Use (MH) No Home Medications: Ambulatory Orders Acetaminophen [Tylenol Extra Strength] 500 - 650 mg PO DAILY PRN 12/14/23 Calcium D3(Unknown Dose) 40 mcg PO QAM 12/14/23 Cholecalciferol (Vitamin D3) [Vitamin D3 (50 Mcg = 2000 Iu)] 50 mcg PO QAM 12/14/23 Ibuprofen [Advil] 200 mg PO DAILY PRN 12/14/23 Multivitamin [Multivitamins Adult Gummies] 1 each PO QAM 12/14/23 Oxybutynin Chloride [oxyBUTYnin chloride ER] 10 mg PO QAM 12/14/23 Simvastatin [Zocor] 10 mg PO HS 12/14/23 Diclofenac Sodium Gel [Voltaren 1% Gel] 50 gm TOPICAL BID 30 Days #1 each 04/29/24 HYDROcodone/APAP 5-325MG [[place] 5-325] 1 tab PO BID PRN 30 Days #60 tab 04/29/24 Meloxicam [Mobic] 7.5 mg PO QAM 30 Days #30 tab 04/29/24 Glucosamine/Chondr Juan A Sod [Osteo Bi-Flex Caplet] 1 each PO DAILY 05/23/24 Magnesium 500 mg PO DAILY 05/23/24 Arnicare Cream 1 applic TOPICAL DIRECTED PRN 07/04/24 Methyl Salicylate/Menth/Camph [Salonpas Deep Relieving Gel] 1 applic TOPICAL DIRECTED PRN 07/04/24 methocarbamoL [Robaxin] 500 mg PO BID PRN 30 Days #60 tab 07/22/24 Controlled Substance Measures - Controlled Substance Measures Is patient prescribed a controlled substance at discharge?: No
== END ==
LOC: PNWHC3 09:45
PROVIDERS: ATTEND Specialist
DX: M54.16 Radiculopathy, lumbar region (principal); M46.1 Sacroiliitis, not elsewhere classified; Z91.09 Other allergy status, other than to drugs and biological substances; Z91.048 Other nonmedicinal substance allergy status
CPT/HCPCS: 99211